=== PATIENT | female | born 1970 | race Native Hawaiian/Other Pacific Islander ===

== ENCOUNTER 2017-05-27 09:36 | Emergency (ER) | payer OTHER ==
[~2017-05-27] VITALS: Ht 167.6 cm; Wt 72.6 kg
[2017-05-27 09:50] VITALS: BP 157/94; TEMP 98.5
== END 2017-05-27 10:10 | disposition home or self-care (01) ==
LOC: ED 09:36
DX: H57.11 Ocular pain, right eye (principal); S00.251A Superficial foreign body of right eyelid and periocular area, initial encounter

== ENCOUNTER 2021-03-05 17:23 | Emergency (ER) | payer OTHER ==
[~2021-03-05] VITALS: Ht 167.6 cm; Wt 76.2 kg
[2021-03-05 17:30] VITALS: BP 153/102; TEMP 99
[2021-03-05 18:24] LABS: PLATELET COUNT 270 K/uL (152-353)
[2021-03-05 18:40] LABS: POTASSIUM 3.8 mmol/L (3.6-5.2)
== END 2021-03-05 19:05 | disposition home or self-care (01) ==
LOC: ED 17:23
PROVIDERS: Hospitalist
DX: R07.89 Other chest pain (principal)
CPT/HCPCS: 36415; 80053; 81000; 83690; 85027; 93005; 96374; 99284; J1885

== ENCOUNTER 2021-10-26 01:54 | Emergency (ER) | payer OTHER ==
[~2021-10-26] VITALS: Ht 167.6 cm; Wt 76.2 kg
[2021-10-26 02:05] VITALS: BP 153/91; TEMP 99.6
== END 2021-10-26 02:52 | disposition home or self-care (01) ==
LOC: ED 01:54
DX: K08.89 Other specified disorders of teeth and supporting structures (principal)
CPT/HCPCS: 96372; 99282; J0696; J1885

== ENCOUNTER 2022-02-14 22:52 | Emergency (ER) | payer OTHER ==
[~2022-02-14] VITALS: Ht 167.6 cm; Wt 77.1 kg
[2022-02-14 23:00] VITALS: TEMP 100.8
[2022-02-15 00:55] VITALS: BP 160/96
== END 2022-02-15 01:57 | disposition home or self-care (01) ==
LOC: ED 22:52
DX: J20.9 Acute bronchitis, unspecified (principal); N39.0 Urinary tract infection, site not specified; H10.89 Other conjunctivitis; Z20.822 Contact with and (suspected) exposure to COVID-19; F17.210 Nicotine dependence, cigarettes, uncomplicated
CPT/HCPCS: 81000; 87088; 87502; 87635; 87651; 96372; 99283; J1885; U0003

== ENCOUNTER 2022-05-02 03:23 | Observation (INO) | payer BC ==
[2022-05-02] VITALS (7 sets, daily range): BP systolic 129–1216; BP diastolic 72–116; TEMP 98.4–99.7; Ht 167.6 cm; Wt 89.9 kg
[~2022-05-02] VITALS: Ht 167.6 cm; Wt 89.9 kg
[2022-05-02 03:59] LABS: PLATELET COUNT 308 K/uL (152-353)
[2022-05-02 04:28] LABS: POTASSIUM 3.3 mmol/L (3.6-5.2)
[2022-05-02 04:41] LABS: PARTIAL THROMBOPLASTIN TIME 25.2 SECONDS (24.5-33.6)
[2022-05-02] MEDS ORDERED: BUMETANIDE1 MG PO (11:15)
[2022-05-02] MEDS ORDERED: METO-837 PO (11:16)
[2022-05-02] MEDS ORDERED: PENI500T14 PO (14:11)
[2022-05-02] MEDS ORDERED: LIDOCAINE HCL VIS2 % MT (14:11)
== END 2022-05-02 16:45 | disposition home or self-care (01) ==
LOC: ED 03:23 → MED/SURG 07:30
PROVIDERS: Emergency Medicine; ADMIT Internal Medicine; ATTEND Internal Medicine
DX: R07.89 Other chest pain (principal); R00.0 Tachycardia, unspecified; R06.02 Shortness of breath; R60.0 Localized edema; I10 Essential (primary) hypertension
CPT/HCPCS: 36415; 80053; 82550; 83880; 84484; 85027; 85379; 85610; 85730; 87635; 93005; 96374; 99220; 99284; G0378; J3490; Q9963; U0003